=== PATIENT | female | born 1990 | race Asian ===

== ENCOUNTER 2018-01-23 14:11 | Emergency (ER) | END 2018-01-23 17:22 | disposition home or self-care (01) ==

== ENCOUNTER 2018-01-24 14:43 | Inpatient (IN) | END 2018-01-24 22:20 | disposition home or self-care (01) | DRG 770 ==

== ENCOUNTER 2018-02-06 11:25 | Emergency (ER) | payer OTHER ==
[~2018-02-06] VITALS: Ht 160 cm; Wt 47.3 kg
[2018-02-06 11:30] VITALS: BP 123/88; PULSE 99; RESP 18; Ht 160 cm; Wt 47.3 kg
--- NOTE | 2018-02-06 12:32 | ERD ---
ER Documentation Chief Complaint Chief Complaint pelvic pain after d&c 01/24 HPI 27-year-old female patient with no significant past medical history presents to the ED complaining of pelvic cramping after receiving a D&C on January 2018. Patient reports that she still has some vaginal spotting and has an appointment with Dr. Ponce at 11:30 AM today on February 06, 2018. Denies any fever, chills, nausea, vomiting, diarrhea, neck stiffness. Patient reports that she feels better after receiving the dilation and curettage from when she was first seen here on January 23, 2018. ROS All systems reviewed and are negative except as per history of present illness. Medications Home Meds No Active Prescriptions or Reported Meds Allergies Allergies: Coded Allergies: No Known Allergy (Unverified , 01/23/18) PMhx/Soc Medical and Surgical Hx: pt denies Medical Hx History of Surgery: Yes (D&C12/) Anesthesia Reaction: No Hx Neurological Disorder: No Hx Respiratory Disorders: No Hx Cardiac Disorders: No Hx Psychiatric Problems: No Hx Miscellaneous Medical Probl: No Hx Alcohol Use: No Hx Substance Use: No Hx Tobacco Use: No Smoking Status: Never smoker Physical Exam Vitals Vital Signs Date Temp Pulse Resp B/P (MAP) Pulse Ox O2 O2 Flow FiO2 Time Delivery Rate 02/06/18 98.0 99 18 123/88 100 11:30 (100) Physical Exam Const: [id number], well-nourished. In no acute distress. Head: Atraumatic, normocephalic Eyes: Normal Conjunctiva without injection. No purulent discharge. ENT: Normal external ear, nose. Moist oropharynx without tonsillar exudates. Non-erythematous pharynx. Uvula midline. No drooling. No trismus. Neck: No cervical midline tenderness. Full range of motion. No meningismus. No cervical lymphadenopathy. No JVD. Resp: Clear to auscultation bilaterally. No wheezing, rhonchi, rales, or crackles. No accessory muscle use. No retractions. Cardio: Regular rate and rhythm. No murmurs, rubs or gallops. Abd: Soft, nontender, non distended. Normal bowel sounds. No palpable masses. No rebound tenderness. No guarding. Negative McBurney's point. Negative psoas sign. Negative obturator sign. Skin: No petechiae or rashes Back: No midline tenderness. No CVA tenderness. Ext: No cyanosis, or edema. Neur: Awake and alert. Normal gait. Normal coordination. Psych: Normal Mood and Affect Procedures/MDM 27-year-old female patient with a past medical history of demise presents to the ED having abdominal cramping after a dilation and curettage and was supposed to have an appointment with Dr. Nubia Sierra at 11:30 AM today on February 06, 2018. I called Dr. Nubia Sierra myself, she reports that she did not send patient here to the ED and can still go to her clinic to be evaluated. Address and phone number of Dr. Sierra's office was given to patient. This was strictly instructed to the patient, and she agreed to follow-up with Dr. Sierra upon discharge. An ultrasound, beta-hCG, CBC, type and RH, UA was ordered to evaluate patient. Low suspicion for symptomatic anemia, acute abdomen, ectopic , sepsis, PID, appendicitis, ovarian torsion, tubo-ovarian abscess, surgical abdomen, or other emergent conditions. Diagnosis: Status post dilation and curettage Follow up with primary care physician in 1-2 days. Instructed patient to return to the ED sooner for any worsening symptoms. Patient's questions were answered. Patient is hemodynamically stable. Patient understood and agreed with discharge plan. Patient discharged stable. Disclaimer: Inadvertent spelling and grammatical errors are likely due to EHR/dictation software use and do not reflect on the overall quality of patient care. Also, please note that the electronic time recorded on this note does not necessarily reflect the actual time of the patient encounter. Departure Diagnosis: Primary Impression: S/P dilation and curettage Condition: Stable Patient Instructions: Dilation and Curettage Referrals: NUBIA SIERRA MD [facility] YOU HAVE RECEIVED A MEDICAL SCREENING EXAM AND THE RESULTS INDICATE THAT YOU DO NOT HAVE A CONDITION THAT REQUIRES URGENT TREATMENT IN THE EMERGENCY DEPARTMENT. FURTHER EVALUATION AND TREATMENT OF YOUR CONDITION CAN WAIT UNTIL YOU ARE SEEN IN YOUR DOCTORS OFFICE WITHIN THE NEXT 1-2 DAYS. IT IS YOUR RESPONSIBILITY TO MAKE AN APPOINTMENT FOR FOLOW-UP CARE. IF YOU HAVE A PRIMARY DOCTOR --you should call your primary doctor and schedule an appointment IF YOU DO NOT HAVE A PRIMARY DOCTOR YOU CAN CALL OUR PHYSICIAN REFERRAL HOTLINE AT IF YOU CAN NOT AFFORD TO SEE A PHYSICIAN YOU CAN CHOSE FROM THE FOLLOWING [facility] [address] [facility] [address] [facility] [address] [facility] [address] [facility] [address] [facility]. [facility] [address] [facility] YOU HAVE RECEIVED A MEDICAL SCREENING EXAM AND THE RESULTS INDICATE THAT YOU DO NOT HAVE A CONDITION THAT REQUIRES URGENT TREATMENT IN THE EMERGENCY DEPARTMENT. FURTHER EVALUATION AND TREATMENT OF YOUR CONDITION CAN WAIT UNTIL YOU ARE SEEN IN YOUR DOCTORS OFFICE WITHIN THE NEXT 1-2 DAYS. IT IS YOUR RESPONSIBILITY TO MAKE AN APPOINTMENT FOR FOLOW-UP CARE. IF YOU HAVE A PRIMARY DOCTOR --you should call your primary doctor and schedule and appointment IF YOU DO NOT HAVE A PRIMARY DOCTOR YOU CAN CALL OUR PHYSICIAN REFERRAL HOTLINE AT . IF YOU CAN NOT AFFORD TO SEE A PHYSICIAN YOU CAN CHOSE FROM THE FOLLOWING [facility] INSTITUTIONS: [facility] [address] [place] [address] [facility] [address] [place] [address] [facility] + [facility] [address] [place] [address] [facility] URGENT CARE/SPECIALTIES Additional Instructions: I have called Dr. Sierra, you may go to her office upon discharge to be e valuated at her clinic. See the doctor sooner or return here if your condition worsens before your appointment time. CHRISTIE HUGGINS PA-C Feb 06, 2018 12:32
== END 2018-02-06 12:21 | disposition home or self-care (01) ==
LOC: FTE 11:25
DX: G89.18 Other acute postprocedural pain (principal)
CPT/HCPCS: 99282